=== PATIENT | female | born 1950 | race Caucasian/White ===

== ENCOUNTER 2017-05-12 09:20 | Inpatient (IN) | payer OTHER ==
[2017-05-12] VITALS (21 sets, daily range): BP systolic 99–190; BP diastolic 51–73; PULSE 65–83; RESP 9–20; Ht 162.6 cm; Wt 74.8 kg
[~2017-05-12] VITALS: Ht 162.6 cm; Wt 74.8 kg
[~2017-05-12 09:20] MED LIST: CEFAZOLIN 2 GM/50 ML (PMX) 50 ML IVPB SCH; SOD CHLORIDE 0.9% 1,000 ML IV SCH
--- NOTE | 2017-05-12 10:28 | RADRPT ---
PROCEDURE: Chest x-ray CLINICAL INDICATION: Preop TECHNIQUE: Chest single view COMPARISON: None FINDINGS: The heart is normal in size. The pulmonary vessels are normal in caliber. The lungs are clear. Th e costophrenic angles are sharp. The visualized bony thorax is unremarkable. IMPRESSION: No acute cardiopulmonary disease. RPTAT: HH .Blaze Bustos MD, Date Time Electronically viewed and signed by .Blaze Bustos MD, MD on 05/12/2017 10:28 .W/
[2017-05-12 10:56] LABS: BASOPHIL # 0.1 10^3/ul (0.0-0.1); BASOPHILS % 1.2 % (0.0-2.0); EOSINOPHILS # 0.1 10^3/ul (0.0-0.5); EOSINOPHILS % 1.8 % (0.0-7.0); HEMATOCRIT 41.2 % (37.0-47.0); HEMOGLOBIN 13.7 g/dl (12.0-16.0); LYMPHOCYTES # 1.8 10^3/ul (0.8-2.9); LYMPHOCYTES % 31.2 % (15.0-51.0); MEAN CORPUSCULAR HEMOGLOBIN 29.5 pg (29.0-33.0); MEAN CORPUSCULAR HGB CONC 33.3 g/dl (32.0-37.0); MEAN CORPUSCULAR VOLUME 88.6 fl (82.0-101.0); MEAN PLATELET VOLUME 10.4 fl (7.4-10.4); MONOCYTE # 0.4 10^3/ul (0.3-0.9); MONOCYTES % 6.1 % (0.0-11.0); NEUTROPHIL # 3.4 10^3/ul (1.6-7.5); NEUTROPHILS % 59.3 % (39.0-77.0); PLATELET COUNT 240 10^3/UL (140-415); RED BLOOD COUNT 4.65 10^6/ul (4.20-5.40); RED CELL DISTRIBUTION WIDTH 13.2 % (11.5-14.5); WHITE BLOOD COUNT 5.7 10^3/ul (4.8-10.8)
[2017-05-12 11:08] LABS: ALBUMIN 4.6 g/dl (3.3-4.9); ALBUMIN/GLOBULIN RATIO 1.39; BILIRUBIN,INDIRECT 0.6 mg/dl (0-1.1); BILIRUBIN,TOTAL 0.6 mg/dl (0.2-1.3); TOTAL PROTEIN 7.9 g/dl (6.1-8.1)
[2017-05-12 11:10] LABS: CALCIUM 9.4 mg/dl (8.4-10.2); CREATININE 0.58 mg/dl (0.44-1.00); POTASSIUM 4.2 mmol/L (3.5-5.1)
[2017-05-12 11:24] LABS: INR 0.96; PROTIME 12.9 Sec (11.9-14.9)
[2017-05-12 11:25] LABS: PARTIAL THROMBOPLASTIN TIME 30.3 Sec (25.0-35.0)
[2017-05-12] MEDS ORDERED: ONDANSETRON 4 MG INJ ONE (12:37)
[2017-05-12] MEDS ORDERED: GLYCOPYRROLATE 0.4 MG INJ ONE (12:37)
[2017-05-12] MEDS ORDERED: NEOSTIGMINE 3 MG/3 ML SYRINGE ONE (12:37)
[2017-05-12] MEDS ORDERED: DEXAMETHASONE 4 MG/ML 1 ML INJ ONE (12:37)
[2017-05-12] MEDS ORDERED: ROCURONIUM 50 MG INJ ONE (12:37)
[2017-05-12] MEDS ORDERED: PROPOFOL 20 ML ONE (12:37)
[2017-05-12] MEDS ORDERED: CEFAZOLIN 1 GM INJ ONE (12:37)
[2017-05-12] MEDS ORDERED: MIDAZOLAM 1 MG/ML 2 ML INJ ONE (12:37)
[2017-05-12] MEDS ORDERED: LABETALOL HCL 20MG INJ ONE (13:18)
[2017-05-12] MEDS ORDERED: hydrALAzine 20 MG INJ ONE (14:12)
[2017-05-12] MEDS ORDERED: SUGAMMADEX SODIUM 200 MG/2 ML VIAL IV ONE (14:24)
[2017-05-12] MEDS ORDERED: METOCLOPRAMIDE 10 MG INJ ONE (14:26)
[2017-05-12] MEDS ORDERED: DIPHENHYDRAMINE 50 MG INJ IV PRN (14:30)
[2017-05-12] MEDS ORDERED: TRIMETHOBENZAMIDE 100 MG/ML VIAL IM PRN (14:30)
[2017-05-12] MEDS ORDERED: IPRATROPIUM (NEB) 0.5 MG/2.5 ML AMP HHN PRN (14:30)
[2017-05-12] MEDS ORDERED: HYDROmorphONE (0.2 MG/ML) 10ML SYG IV PRN ×2 (14:30)
[2017-05-12] MEDS ORDERED: OXYCODONE/ACETAMINOPHEN (5/325) TAB PO PRN ×2 (14:30)
[2017-05-12] MEDS ORDERED: ALBUTEROL 0.083% (NEB) 2.5 MG/3 ML AMP HHN PRN (14:30)
[2017-05-12] MEDS ORDERED: hydrALAzine 20 MG INJ IV PRN (14:30)
[2017-05-12] MEDS ORDERED: MEPERIDINE 25 MG INJ IV PRN (14:30)
[2017-05-12] MEDS ORDERED: LABETALOL HCL 20MG INJ IV PRN (14:30)
[2017-05-12] MEDS ORDERED: EPHEDrine SULFATE 50 MG/5 ML SYG IV PRN (14:30)
[2017-05-12] MEDS ORDERED: FENTAnyl 50 MCG/ML VIAL IV PRN ×3 (14:30)
[2017-05-12] MEDS ORDERED: ONDANSETRON 4 MG INJ IV PRN ×2 (14:30→15:30)
[2017-05-12] MEDS ORDERED: MIDAZOLAM 1 MG/ML 2 ML INJ IV PRN (14:30)
[2017-05-12] MEDS: HYDROmorphONE (0.2 MG/ML) 10ML SYG IV PRN ×2 (14:50→15:03)
--- NOTE | 2017-05-12 15:24 | SIPON ---
Date/Time of Note Date/Time of Note DATE: 05/12/17 TIME: 15:20 Operative Report Preoperative Diagnosis Locally advanced right breast cancer Postoperative Diagnosis Same Operation/Procedure Performed Right modified radical mastectomy Surgeon see signature line assisted living nursing director Dr Giron Second assist: MAYO TORREZ MD Anesthesia: general Estimated blood loss: 10 - 50 ml's Transfusion Required none Specimen Right breast and axillary contents Grafts/Implants none Complications none DAYANA EUBANKS MD May 12, 2017 15:24
[2017-05-12] MEDS ORDERED: ACETAMINOPHEN 1000MG/100ML IV 100 ML IVPB PRN (15:30)
[2017-05-12] MEDS ORDERED: morphine 2 MG INJ IV PRN (15:30)
--- NOTE | 2017-05-12 16:41 | OPR ---
DATE OF OPERATION: 05/12/2017 PREOPERATIVE DIAGNOSIS: Locally advanced right breast cancer. POSTOPERATIVE DIAGNOSIS: Locally advanced right breast cancer. PROCEDURE: Right modified radical mastectomy. ANESTHESIA: General. ANESTHESIOLOGIST: Dr. Mac. SURGEON: Morgan Pichardo MD ASSISTANTS: Dr. Nish Alarcon and Dr. Mary Jane Garcia. INDICATIONS FOR PROCEDURE: The patient is a 67-year-old female who noticed an enlarging mass for mo re than 2 years in her right breast. It is unclear why she did not seek medical attention. Eventua lly, she presented with a large mass with nipple retraction. She was counseled as to the risks vers us benefits of a modified radical mastectomy. She consented and was scheduled for surgery. DESCRIPTION OF PROCEDURE: The patient was brought to the operating theater, placed under general an esthesia. The right breast and axillary region were prepped and draped in the usual sterile fashion . A large elliptical incision was demarcated around the nipple-areolar complex and the underlying m ass with a marking pen. It was carried out with a 15 blade scalpel. Subcutaneous tissue was dissec osmar with cautery. Skin edges were then elevated with Allis-Cameron clamps, and skin flaps were create d in sequential fashion using cautery, first superiorly to the clavicle, then medially to the sterna l border, inferiorly to the inframammary fold and laterally until the latissimus dorsi muscle was id entified throughout its course. Mastectomy then took place from medial to lateral using cautery. A t the border of the pectoralis major muscle, the pectoralis minor muscle was identified. Clavipecto ral fascia was incised. There were multiple, very enlarged axillary nodes consistent with metastati c disease. With blunt dissection along the chest wall, the long thoracic nerve was identified and k ept out of harm's way. More superiorly, the axillary vein was identified and dissected from medial to lateral. The thoracodorsal neurovascular bundle was identified throughout its course and kept ou t of harm's way. Node-bearing tissue between the 2 nerves was then meticulously harvested with the LigaSure device. Final connective tissue attachments to the latissimus dorsi muscle were then trans ected with cautery. Specimen was removed, oriented and sent for permanent pathologic analysis. The wound was then irrigated. Minimal bleeding was controlled with cautery. Two #10-[place] Clem-Pr att drains were then brought through the right mid axillary line. One was cut to size and laid with in the axilla. The other was laid over the pectoralis major muscle. Both drains were secured in pl david with 2-0 nylon sutures in the standard fashion, and the skin was then reapproximated with skin s taples. The patient tolerated procedure well. The estimated blood loss was approximately 50 mL. T here were no complications. The patient was transported in stable condition to the recovery room ere a circumferential compression dressing was applied. Dictated By: MORGAN PICHARDO MD TL/NTS Conf#: [id number] DID#: [id number] CC: MARY JANE GARCIA MD; NISH ALARCON MD; MORGAN PICHARDO MD;*End*
[2017-05-12] MEDS: D5W-0.45 NACL + KCL 20 MEQ 1,000 ML IV SCH (16:57)
[2017-05-13] MEDS: D5W-0.45 NACL + KCL 20 MEQ 1,000 ML IV SCH ×3 (00:26→15:22)
[2017-05-13 00:33] VITALS: BP 99/52; RESP 18
[2017-05-13 04:00] VITALS: BP 110/70; PULSE 70; RESP 16
--- NOTE | 2017-05-13 06:00 | HP ---
DATE OF ADMISSION: 05/12/2017 CHIEF COMPLAINT AND HISTORY OF PRESENT ILLNESS: The patient is a 67-year-old female who noticed enl arging mass in her right breast for more than 2 years. Patient did not immediately seek medical adv ice and presented to Dr. Eubanks' office with large mass, nipple retraction. The patient was diagnose d with locally advanced right breast cancer. The patient's tumor is ER and MO positive and HER-2 ne gative. The patient was not thought to be a candidate for neoadjuvant chemotherapy and was brought in to hospital today for surgery. The patient underwent right modified radical mastectomy. The pat ient postoperatively had significant pain and is being admitted for further evaluation and managemen t. The patient denied any history of headache, dizziness, syncope. No history of fever or chills. No history of nausea, vomiting. No history of dysuria or hematuria. No history of focal weakness. No history of headache, dizziness, syncope. REVIEW OF SYSTEMS: Rest of review of systems unremarkable. PAST SURGICAL HISTORY: None. ALLERGIES: NONE. SOCIAL HISTORY: No smoking, no alcohol. FAMILY HISTORY: Positive for breast cancer, details not available. PHYSICAL EXAMINATION: GENERAL: The patient is conscious, awake, alert. VITAL SIGNS: Temperature 98, pulse 70, respirations 18, blood pressure 99/55, O2 sat 99 on room air . HEENT: Conjunctivae and lids normal. Oropharynx clear. NECK: Supple. No mass, no thyromegaly. CHEST: Fairly clear. CARDIOVASCULAR: S1, S2 normal. No murmur. ABDOMEN: Soft and nontender. Bowel sounds present. EXTREMITIES: No leg edema. NEUROLOGIC: The patient is awake, alert, fairly oriented with no gross focal deficit. IMPRESSION: Right breast mass, status post core biopsy positive for invasive ductal carcinoma, nega tive right axillary biopsy. The patient underwent right modified radical mastectomy. PLAN: Patient admitted on medical floor. Patient will be started on clear liquid diet, advance as tolerated. The patient will be given IV fluid and for pain control patient was given IV Tylenol, Pe rcocet, and IV morphine. We will use SCD for DVT prophylaxis. Plan of care discussed with patient' s family. We will continue to follow her from a medical standpoint. Preoperative labs done this mo rning revealed WBC 5.7, hemoglobin 13.7, platelets 240. Sodium 144, potassium 4.2, BUN 12, creatini ne 0.5, glucose 131. Liver enzymes normal. Calcium normal. Dictated By: MARTY GOODEN/JORGE Conf#: [id number] DID#: [id number] CC: DAYANA EUBANKS MD;*EndCC*
[2017-05-13 06:03] VITALS: BP 116/56; RESP 20
[2017-05-13 08:26] VITALS: BP 106/51; RESP 18
--- NOTE | 2017-05-13 13:15 | PN ---
DATE: 05/13/2017 Postop day #1 status post right modified radical mastectomy. SUBJECTIVE: No complaint. OBJECTIVE: GENERAL: Awake, alert, oriented x3. VITAL SIGNS: 98 Temperature, 64 heart rate, 18 respirations, blood pressure 106 /51, saturation 95% on room air. Clem-Whitney in place draining serosanguineous fluid. Drainage, one of them 35 mL, the other one 105 mL, past 24 hours. The dressing is intact. Moves the right arm completely. ASSESSMENT: The patient is status post right modified radical mastectomy, postop day #1. Vital signs are stable. PLAN: Patient wants to go home. we are going to discharge her. Clem- Whitney drain is draining serosanguineous fluid. The instruction was given by me and nursing to the patient. Patient to be followed by Dr. Eubanks in the office. They are going to call next week and make an appointment. Dictated By: DARNELL ALARCON MD PS/NTS Conf#: [id number] DID#: [id number] CC: DAYANA EUBANKS MD;*EndCC* MTDD
--- NOTE | 2017-05-13 14:03 | PDOCDIS ---
Discharge Instructions CONDITION Patient Condition: Stable HOME CARE INSTRUCTIONS: Diet Instructions: Regular ACTIVITY: Activity Restrictions: Slowly Increase Activity Rest between Activity Avoid heavy lifting Do not Drive Avoid Heavy Housework Bathing Restrictions: Shower FOLLOW UP/APPOINTMENTS Follow-up Plan FU with Primary MD 1 week FU with Surgery as recommended Call 911 or got to the nearest hospital if symptoms get worse- patient verbalized understanding of dc instructions Dw Dr Houser/ staff/ patient CARLEE WIN May 13, 2017 14:03
[2017-05-13] MEDS ORDERED: ACET500C5 PO ×2 (14:06→14:18)
[2017-05-13] MEDS ORDERED: DOCU-144 PO ×2 (14:06→14:16)
--- NOTE | 2017-05-13 14:08 | DS ---
Date/Time of Note Date/Time of Note DATE: 05/13/17 TIME: 14:07 Discharge Summary Admission/Discharge Info Admit Date/Time May 12, 2017 at 09:20 Discharge Date/Time Discharge Diagnosis - Right breast mass - status post core biopsy positive for invasive ductal carcinoma, negative right axillary biopsy. - SP right modified radical mastectomy. Patient Condition: Stable Consults Dr [facility] Course The patient is a 67-year-old female diagnosed with locally advanced right breast cancer with ER and NM positive and HER-2 negative. The patient was not thought to be a candidate for neoadjuvant chemotherapy and was brought in to hospital today for surgery. The patient underwent right modified radical mastectomy. The patient was admitted for postoperatively pain. She got stable and was cleared by surgery to go home. Home Meds Active Scripts Docusate Sodium* (Colace*) 100 Mg Capsule, 100 MG PO DAILY, #30 CAP Prov:CARLEE WIN 05/13/17 Acetaminophen* (Tylophen*) 500 Mg Capsule, 1 CAP PO Q6H Y for PAIN AND OR ELEVATED TEMP, #20 CAP Prov:CARLEE WIN 05/13/17 Follow-up Plan FU with Primary MD 1 week FU with Surgery as recommended Call 911 or got to the nearest hospital if symptoms get worse- patient verbalized understanding of dc instructions Hossein Houser/ staff/ patient Primary Care Provider Not On Staff Doctor Time spent on discharge: < 30 minutes CARLEE WIN May 13, 2017 14:08
[2017-05-13 14:16] VITALS: BP 112/58; RESP 18
--- NOTE | 2017-05-15 13:23 | RADRPT ---
Vent Rate: 75 bpm RR Interval: 0 msec PA Interval: 164 msec QRS Duration: 92 msec QT Interval: 398 msec QTC Interval: 444 msec P-R-T [place]: 73 - 55 - 63 degrees Normal sinus rhythm Normal ECG Electronically Signed By: Clyde Kelley [id number]
== END 2017-05-13 18:00 | disposition home or self-care (01) | DRG 581 ==
LOC: REC 09:20 → EDSTATUS 12:00 → MS1 16:15
PROVIDERS: ADMIT Surgery Surgical Oncology; ATTEND Surgery Surgical Oncology
PROC: 07B50ZX Excision of Right Axillary Lymphatic, Open Approach, Diagnostic (ICD-10-PCS; 2017-05-12)
PROC: 0HTT0ZZ Resection of Right Breast, Open Approach (ICD-10-PCS; principal; 2017-05-12 11:00)
DX: C50.911 Malignant neoplasm of unspecified site of right female breast (principal); N64.53 Retraction of nipple
CPT/HCPCS: 71010; 80053; 85025; 85610; 85730; 88307; 93005; J0131; J0360; J0690; J1100; J1170; J2250; J2405; J2710; J2765; J3010; J3480; J7030